=== PATIENT | female | born 1970 | race Caucasian/White ===

== ENCOUNTER 2017-05-14 13:23 | Emergency (ER) | payer OTHER ==
[2017-05-14] MEDS ORDERED: METHYLPREDNISOLONE 125 MG INJ ONE (14:13)
[2017-05-14] MEDS ORDERED: FAMOTIDINE 20 MG/2 ML VIAL IV ONE (14:13)
[2017-05-14] MEDS ORDERED: DIPHENHYDRAMINE 50 MG/ML VIAL ONE (14:13)
--- NOTE | 2017-05-14 14:51 | EDPHYS ---
Physician Documentation [facility] Name: Darion Chan Age: 46 yrs Sex: Female : 1970 Arrival Date: 05/14/2017 Time: 13:32 Bed 16 Private MD: ED Physician Hernan Gomez HPI: 05/14 15:00 This 46 yrs old Female presents to ER via EMS with complaints of Allergic pm1 Reaction. 15:00 The patient presents with itching, shortness of breath. Onset: The symptoms/episode pm1 began/occurred this morning. Associated signs and symptoms: Pertinent positives: shortness of breath, Pertinent negatives: hives, rash. Possible causes: Patient just started using an eye drop for a stye today and started having symptoms of shortness of breath and itching. At home the patient or guardian has treated the symptoms with nothing. Severity of symptoms: in the emergency department the symptoms are worse. The patient has not experienced similar symptoms in the past. The patient has been recently seen by a physician: with different complaint(s). 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 ROS: 15:00 Constitutional: Negative for fever, chills, and weight loss. pm1 15:00 ENT: Negative for injury, pain, and discharge, Neck: Negative for injury, pain, and swelling, Cardiovascular: Negative for chest pain, palpitations, and edema, Respiratory: Negative for cough, wheezing, and pleuritic chest pain. Positive for shortness of breath Abdomen/GI: Negative for abdominal pain, nausea, vomiting, diarrhea, and constipation, Back: Negative for injury and pain, MS/Extremity: Negative for injury and deformity. 15:00 Eyes: Positive for of the left upper eyelid, stye . 15:00 Skin: Positive for itching diffusely. Exam: 15:00 Constitutional: This is a well developed, well nourished patient who is awake, alert, pm1 and in no acute distress. Head/Face: Normocephalic, atraumatic. Eyes: Pupils equal round and reactive to light, extra-ocular motions intact. Lids and lashes normal. Conjunctiva and sclera are non-icteric and not injected. Cornea within normal limits. Periorbital areas with no swelling, redness, or edema. No stye present ENT: Nares patent. No nasal discharge, no septal abnormalities noted. Tympanic membranes are normal and external auditory canals are clear. Oropharynx with no redness, swelling, or masses, exudates, or evidence of obstruction, uvula midline. Mucous membranes moist. Neck: Trachea midline, no thyromegaly or masses palpated, and no cervical lymphadenopathy. Supple, full range of motion without nuchal rigidity, or vertebral point tenderness. No Meningismus. Chest/axilla: Normal chest wall appearance and motion. Nontender with no deformity. No lesions are appreciated. Cardiovascular: Regular rate and rhythm with a normal S1 and S2. No gallops, murmurs, or rubs. Normal PMI, no JVD. No pulse deficits. Respiratory: Lungs have equal breath sounds bilaterally, clear to auscultation and percussion. No rales, rhonchi or wheezes noted. No increased work of breathing, no retractions or nasal flaring. Abdomen/GI: Soft, non-tender, with normal bowel sounds. No distension or tympany. No guarding or rebound. No evidence of tenderness throughout. Back: No spinal tenderness. No costovertebral tenderness. Full range of motion. Skin: Warm, dry with normal turgor. Normal color with no rashes, no lesions, and no evidence of cellulitis. MS/ Extremity: Pulses equal, no cyanosis. Neurovascular intact. Full, normal range of motion. 15:00 Neuro: Orientation: is normal, Motor: moves all fours. Vital Signs: 13:37 BP 130 / 76; Pulse 85; Resp 16 S; Pulse Ox 97% on R/A; Weight 63.5 kg (R); Height 5 ft. jl7 0 in. (152.40 cm) (R); Pain 5/10; 14:34 BP 135 / 92; Pulse 80; Resp 16 S; Pulse Ox 100% on R/A; 7 13:37 Body Mass Index 27.34 (63.50 kg, 152.40 cm) 7 MDM: 13:46 Patient medically screened. pm1 14:35 Data reviewed: vital signs. Data interpreted: Pulse oximetry: on room air is 100 %. pm1 Interpretation: normal. Counseling: I had a detailed discussion with the patient and/or guardian regarding: the historical points, exam findings, and any diagnostic results supporting the discharge/admit diagnosis, the need for outpatient follow up, to return to the emergency department if symptoms worsen or persist or if there are any questions or concerns that arise at home. 05/14 13:50 Order name: IV Saline Lock; Complete Time: 14:03 pm1 Administered Medications: 13:58 Drug: Pepcid 20 mg Route: IVP; Site: left forearm; [facility] 14:30 Follow up: Response: No adverse reaction [facility] 14:00 Drug: SOLU-Medrol 125 mg Route: IVP; Site: left forearm; [facility] 14:30 Follow up: Response: No adverse reaction [facility] 14:02 Drug: Benadryl 12.5 mg Route: IVP; Site: left forearm; [facility] 14:30 Follow up: Response: No adverse reaction [facility] Disposition: 05/15 07:13 Co-signature as Attending Physician, Hernan Gomez MD. ma2 Disposition: 05/14/17 14:39 Discharged to Home. Impression: Unspecified adverse effect of drug or medicament - allergic reaction to dexamethasone/neomycin/polymyxin ophthalmic. - Condition is Stable. - Discharge Instructions: Drug Allergy. - Prescriptions for Benadryl 25 mg Oral Capsule - take 1 capsule by ORAL route every 6 hours As needed; 30 tablet. Pepcid 20 mg Oral Tablet - take 1 tablet by ORAL route every 12 hours for 10 days; 20 tablet. Prednisone 20 mg Oral Tablet - take 3 tablet by ORAL route once daily for 5 days; 15 tablet. - Medication Reconciliation Form, Thank You Letter form. - Follow up: Emergency Department; When: As needed; Reason: Worsening of condition. Follow up: Private Physician; When: 2 - 3 days; Reason: Recheck today's complaints, Continuance of care, Re-evaluation by your physician. - Problem is new. - Symptoms have improved. Signatures: Robert Pena NP NURSING HOME AIDE pm1 Satish Mueller RN RN jl7 Hernan Gomez MD MD ma2 Andrei White jtb Corrections: (The following items were deleted from the chart) 05/14 23:25 15:00 ENT: Negative for injury, pain, and discharge, Neck: Negative for injury, pain, pm1 and swelling, Cardiovascular: Negative for chest pain, palpitations, and edema, Respiratory: Negative for shortness of breath, cough, wheezing, and pleuritic chest pain, Abdomen/GI: Negative for abdominal pain, nausea, vomiting, diarrhea, and constipation, Back: Negative for injury and pain, MS/Extremity: Negative for injury and deformity, pm1
--- NOTE | 2017-05-14 14:51 | ER ---
Nurse's Notes [facility] Name: Darion Chan Age: 46 yrs Sex: Female : 1970 Arrival Date: 05/14/2017 Time: 13:32 Bed 16 Private MD: Diagnosis: Unspecified adverse effect of drug or medicament-allergic reaction to dexamethasone/neomycin/polymyxin ophthalmic Presentation: 05/14 13:32 Presenting complaint: EMS states: Pt c/o throat swelling and the left side of her face jl7 swelling about an hour after she took eye drops. Transition of care: patient was received from another setting of care (rehabilitation facility). Onset: The symptoms/episode began/occurred acutely, 1.5 hour(s) ago. Onset of symptoms was May 14, 2017. Care prior to arrival: None. 13:32 Method Of Arrival: EMS: [facility] jl 13:32 Acuity: LAKE 3 jl7 Triage Assessment: 13:35 General: Appears in no apparent distress. comfortable, Behavior is cooperative. Pain: jl7 Denies pain. EENT: Swelling noted to uvula at this time.. Neuro: Level of Consciousness is awake, alert, obeys commands. Cardiovascular: Patient's skin is warm and dry. Respiratory: Airway is patent Respiratory effort is even, unlabored, Respiratory pattern is regular, symmetrical. Derm: Skin is pink, warm \T\ dry. 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 Screenin:45 Abuse screen: Denies threats or abuse. Denies injuries from another. Nutritional jtb screening: No deficits noted. Tuberculosis screening: No symptoms or risk factors identified. Fall Risk None identified. Assessment: 13:45 General: Appears in no apparent distress. uncomfortable, Behavior is calm, cooperative, jtb appropriate for age. Pain: Complains of pain in chest Pain does not radiate. Pain currently is 5 out of 10 on a pain scale. at worst was 8 out of 10 on a pain scale. Quality of pain is described as pressure, Pain began 1 hour ago. Is intermittent. Neuro: Level of Consciousness is awake, alert, obeys commands, Oriented to person, place, time, situation. Cardiovascular: Heart tones S1 S2 present Patient's skin is warm and dry. Respiratory: Airway is patent Trachea midline Respiratory effort is even, unlabored, Respiratory pattern is regular, symmetrical, Breath sounds are clear bilaterally. GI: No signs and/or symptoms were reported involving the gastrointestinal system. : No signs and/or symptoms were reported regarding the genitourinary system. EENT: No signs and/or symptoms were reported regarding the EENT system. Derm: Skin is intact, Skin is pink, warm \T\ dry. Musculoskeletal: No signs and/or symptoms reported regarding the musculoskeletal system. 14:32 Reassessment: Patient and/or family updated on plan of care and expected duration. Pain jl7 level reassessed. Patient is alert, oriented x 3, equal unlabored respirations, skin warm/dry/pink. Patient states symptoms have improved. Vital Signs: 13:37 BP 130 / 76; Pulse 85; Resp 16 S; Pulse Ox 97% on R/A; Weight 63.5 kg (R); Height 5 ft. jl7 0 in. (152.40 cm) (R); Pain 5/10; 14:34 BP 135 / 92; Pulse 80; Resp 16 S; Pulse Ox 100% on R/A; jl7 13:37 Body Mass Index 27.34 (63.50 kg, 152.40 cm) jl7 ED Course: 13:32 Patient arrived in ED. jl7 13:33 Robert Pena NP is PHCP. pm1 13:33 Hernan Gomez MD is Attending Physician. pm1 13:34 Triage completed. jl7 13:37 Arm band placed on right wrist. jl7 13:45 Patient has correct armband on for positive identification. Bed in low position. Call j light in reach. Side rails up X2. Pulse ox on. NIBP on. 13:45 Inserted saline lock: 20 gauge in left antecubital area, using aseptic technique. [facility] 13:52 Mueller, Jahala, RN is Primary Nurse. jl7 15:10 No provider procedures requiring assistance completed. jtb 15:10 IV discontinued, intact, bleeding controlled. jtb Administered Medications: 13:58 Drug: Pepcid 20 mg Route: IVP; Site: left forearm; jl7 14:30 Follow up: Response: No adverse reaction jl7 14:00 Drug: SOLU-Medrol 125 mg Route: IVP; Site: left forearm; jl7 14:30 Follow up: Response: No adverse reaction jl7 14:02 Drug: Benadryl 12.5 mg Route: IVP; Site: left forearm; jl7 14:30 Follow up: Response: No adverse reaction [facility] Outcome: 14:39 Discharge ordered by MD. pm1 15:10 Discharged to Rehab Facility jtb 15:10 Condition: stable 15:10 Discharge instructions given to patient, Instructed on discharge instructions, follow up and referral plans. medication usage, Demonstrated understanding of instructions, follow-up care, medications, Prescriptions given X 3. 15:10 Attestation : I agree with everything documented by Andrei White, Student Nurse. jl7 15:11 Patient left the ED. jtb Signatures: Robert Pena, AARON POPCORN ATTENDANT pm1 Satish Mueller, RN RN jl7 Andrei White jalison Corrections: (The following items were deleted from the chart) 15:10 13:15 Inserted saline lock: 20 gauge in left antecubital area, using aseptic technique. jtb jtb
== END 2017-05-14 15:11 | disposition home or self-care (01) ==
LOC: ER 13:23
DX: T49.0X5A Adverse effect of local antifungal, anti-infective and anti-inflammatory drugs, initial encounter (principal); F17.210 Nicotine dependence, cigarettes, uncomplicated; J44.9 Chronic obstructive pulmonary disease, unspecified; Z88.8 Allergy status to other drugs, medicaments and biological substances
CPT/HCPCS: 96374; 96375; 99284; J2930

== ENCOUNTER 2017-05-31 20:51 | Emergency (ER) | payer OTHER ==
--- NOTE | 2017-06-01 00:34 | EDPHYS ---
Physician Documentation [facility] Name: Darion Chan Age: 46 yrs Sex: Female : 1970 Arrival Date: 05/31/2017 Time: 21:04 Bed 14 Private MD: ED Physician Daniel Reyes HPI: 06/01 00:00 This 46 yrs old Female presents to ER via Ambulatory with complaints of Arm pm1 Pain. 00:00 The patient or guardian complains of pain, that is acute. The complaints affect the pm1 left wrist. Context: The problem was sustained at home, resulted from a fall, the patient slipped, while walking. Onset: The symptoms/episode began/occurred 4 day(s) ago. Treatment prior to arrival includes: splinting the affected extremity. The patient has been recently seen by a physician: with similar presenting complaints, and apparently given a diagnosis of wrist sprain, X-rays were performed. Patient will slip and fall with injury to left wrist. Patient was seen at another ER and was given a splint to left wrist but reports pain is continuing despite treatment and ibuprofen. 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 - Social history:: Smoking status: Patient uses tobacco products, smokes one pack cigarettes per day. ROS: 06/01 00:00 Constitutional: Negative for fever, chills, and weight loss, Eyes: Negative for injury, pm1 pain, redness, and discharge, ENT: Negative for injury, pain, and discharge, Neck: Negative for injury, pain, and swelling, Cardiovascular: Negative for chest pain, palpitations, and edema, Respiratory: Negative for shortness of breath, cough, wheezing, and pleuritic chest pain, Abdomen/GI: Negative for abdominal pain, nausea, vomiting, diarrhea, and constipation, Back: Negative for injury and pain. Skin: Negative for injury, rash, and discoloration, Neuro: Negative for headache, weakness, numbness, tingling, and seizure. MS/extremity: Positive for pain, of the left wrist, Negative for decreased range of motion. Exam: 00:00 Constitutional: This is a well developed, well nourished patient who is awake, alert, pm1 and in no acute distress. Head/Face: Normocephalic, atraumatic. Eyes: Pupils equal round and reactive to light, extra-ocular motions intact. Lids and lashes normal. Conjunctiva and sclera are non-icteric and not injected. Cornea within normal limits. Periorbital areas with no swelling, redness, or edema. ENT: Nares patent. No nasal discharge, no septal abnormalities noted. Tympanic membranes are normal and external auditory canals are clear. Oropharynx with no redness, swelling, or masses, exudates, or evidence of obstruction, uvula midline. Mucous membranes moist. Neck: Trachea midline, no thyromegaly or masses palpated, and no cervical lymphadenopathy. Supple, full range of motion without nuchal rigidity, or vertebral point tenderness. No Meningismus. Chest/axilla: Normal chest wall appearance and motion. Nontender with no deformity. No lesions are appreciated. Cardiovascular: Regular rate and rhythm with a normal S1 and S2. No gallops, murmurs, or rubs. Normal PMI, no JVD. No pulse deficits. Respiratory: Lungs have equal breath sounds bilaterally, clear to auscultation and percussion. No rales, rhonchi or wheezes noted. No increased work of breathing, no retractions or nasal flaring. Abdomen/GI: Soft, non-tender, with normal bowel sounds. No distension or tympany. No guarding or rebound. No evidence of tenderness throughout. Back: No spinal tenderness. No costovertebral tenderness. Full range of motion. Skin: Warm, dry with normal turgor. Normal color with no rashes, no lesions, and no evidence of cellulitis. 00:00 Musculoskeletal/extremity: Extremities: grossly normal except: noted in the left wrist: pain, tenderness, ROM: intact in all extremities, Circulation is intact in all extremities. 00:00 Neuro: Orientation: is normal, Motor: is normal, moves all fours, Sensation: is normal, no obvious gross deficits. Vital Signs: 05/31 21:07 BP 115 / 81; Pulse 87; Resp 16; Temp 98.6; Pulse Ox 100% on R/A; Weight 63.5 kg; Height aj 5 ft. 0 in. (152.40 cm); Pain 10/10; 22:25 BP 143 / 90; Pulse 83; Resp 16; Pulse Ox 100% on R/A; Pain 10/10; ao 23:31 BP 128 / 79; Pulse 80; Resp 16; Pulse Ox 99% on R/A; mt 06/01 00:33 BP 123 / 71; Pulse 84; Resp 16; Pulse Ox 100% on R/A; mt 05/31 21:07 Body Mass Index 27.34 (63.50 kg, 152.40 cm) aj Procedures: 00:47 Splinting: Splint applied to left wrist using wrist splint, applied by Prior ER Visit. pm1 Examined by me, post splint application: neurovascular intact, 2+ distal pulses palpable, brisk capillary refill noted, Patient tolerated well, Readjusted and sized splint. Patient reports left wrist feeling better after readjustment. MDM: 05/31 22:56 Patient medically screened. pm1 06/01 00:32 Data reviewed: vital signs. Data interpreted: Pulse oximetry: on room air is 99 %. pm1 Interpretation: normal. Counseling: I had a detailed discussion with the patient and/or guardian regarding: the historical points, exam findings, and any diagnostic results supporting the discharge/admit diagnosis, radiology results, the need for outpatient follow up, for definitive care, a orthopedic surgeon, to return to the emergency department if symptoms worsen or persist or if there are any questions or concerns that arise at home. 05/31 23:01 Order name: Wrist Left (3 View) XRAY pm1 Administered Medications: No medications were administered Disposition: 01:30 Co-signature as Attending Physician, Daniel Reyes MD. pktracy Disposition: 06/01/17 00:33 Discharged to Home. Impression: Pain in left wrist, Unspecified sprain of left wrist. - Condition is Stable. - Discharge Instructions: Musculoskeletal Pain, Wrist Pain, Wrist Splint. - Medication Reconciliation Form, Thank You Letter form. - Follow up: Emergency Department; When: As needed; Reason: Worsening of condition. Follow up: Asim Parmar MD; When: 2 - 3 days; Reason: Recheck today's complaints, Continuance of care, Re-evaluation by your physician. - Problem is new. - Symptoms have improved. Signatures: Dispatcher [employer] Gisel Almazan, RN Daniel Nguyễn MD MD pkl Ortiz, Alex, RN RN ao Marinas, Patrick, PRINT LINE SUPERVISOR PRINT LINE SUPERVISOR pm1
--- NOTE | 2017-06-01 00:34 | ER ---
Nurse's Notes [facility] Name: Darion Chan Age: 46 yrs Sex: Female : 1970 Arrival Date: 05/31/2017 Time: 21:04 Bed 14 Private MD: Diagnosis: Pain in left wrist;Unspecified sprain of left wrist Presentation: 05/31 21:04 Presenting complaint: Patient states: Reports left wrist pain that started 1 week ago aj after fall. Patient seen in another ER and had Xray, DX with sprain. Arrived in splint. Transition of care: patient was not received from another setting of care. Onset of symptoms was May 25, 2017. Note Patient is currently in treatment for drug and alcohol abuse. Patient is unable to receive narcotic pain medication. Care prior to arrival: Splint in [facility] from [facility]. 21:04 Method Of Arrival: Ambulatory 21:04 Acuity: LAKE 5 aj Triage Assessment: 21:07 General: Appears in no apparent distress. comfortable, Behavior is calm, cooperative, aj appropriate for age. Pain: Complains of pain in dorsal aspect of left forearm, left wrist and palmar aspect of left forearm Pain currently is 10 out of 10 on a pain scale. Neuro: Level of Consciousness is awake, alert, obeys commands, Oriented to person, place, time, situation. Respiratory: Airway is patent Respiratory effort is even, unlabored, Respiratory pattern is regular, symmetrical. Derm: Skin is intact, is healthy with good turgor, Skin is pink, warm \T\ dry. normal. Musculoskeletal: Reports pain in dorsal aspect of left forearm, left wrist and palmar aspect of left forearm. 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 - Social history:: Smoking status: Patient uses tobacco products, smokes one pack cigarettes per day. Screenin:20 Abuse screen: Denies threats or abuse. Denies injuries from another. Nutritional ao screening: No deficits noted. Tuberculosis screening: No symptoms or risk factors identified. Fall Risk None identified. Assessment: 22:19 General: Appears in no apparent distress. comfortable, Behavior is calm, cooperative, ao appropriate for age. Pain: Complains of pain in left arm. Neuro: Level of Consciousness is awake, alert, obeys commands, Oriented to person, place, time, Moves all extremities. Speech is normal. Cardiovascular: Patient's skin is warm and dry. Respiratory: Airway is patent Respiratory effort is even, unlabored, Respiratory pattern is regular, symmetrical. GI: Abdomen is non-distended. : No signs and/or symptoms were reported regarding the genitourinary system. EENT: No signs and/or symptoms were reported regarding the EENT system. Derm: No signs and/or symptoms reported regarding the dermatologic system. Musculoskeletal: Reports pain in left arm. 23:36 Reassessment: Patient appears in no apparent distress at this time. No changes from ao previously documented assessment. Patient and/or family updated on plan of care and expected duration. Pain level reassessed. Patient is alert, oriented x 3, equal unlabored respirations, skin warm/dry/pink. Patient had an X-ray. Waiting on X-ray report at this moment. 06/01 00:40 Reassessment: Patient appears in no apparent distress at this time. Patient and/or ao family updated on plan of care and expected duration. Pain level reassessed. Patient is alert, oriented x 3, equal unlabored respirations, skin warm/dry/pink. 00:50 Reassessment: Called [facility] to inform patient is been discharge. They stated that ao they will come to pick her up. Vital Signs: 05/31 21:07 BP 115 / 81; Pulse 87; Resp 16; Temp 98.6; Pulse Ox 100% on R/A; Weight 63.5 kg; Height aj 5 ft. 0 in. (152.40 cm); Pain 10/10; 22:25 BP 143 / 90; Pulse 83; Resp 16; Pulse Ox 100% on R/A; Pain 10/10; ao 23:31 BP 128 / 79; Pulse 80; Resp 16; Pulse Ox 99% on R/A; mt 04/03 00:33 BP 123 / 71; Pulse 84; Resp 16; Pulse Ox 100% on R/A; mt 05/31 21:07 Body Mass Index 27.34 (63.50 kg, 152.40 cm) ED Course: 05/31 21:04 Patient arrived in ED. aj 21:06 Triage completed. aj 21:07 Arm band placed on right wrist. Patient placed in waiting room, Patient notified of wait time. 22:19 Gera Davila, RN is Primary Nurse. ao 22:21 Patient has correct armband on for positive identification. Pulse ox on. NIBP on. ao 22:35 Robert Pena NP is PHCP. pm1 22:35 Daniel Reyes MD is Attending Physician. pm1 23:29 X-ray completed. Portable x-ray completed in exam room. Patient tolerated procedure kw well. 23:29 Wrist Left (3 View) XRAY In Process Unspecified. EDDC 06/01 00:33 Asim Parmar MD is Referral Physician. pm1 00:51 No provider procedures requiring assistance completed. Patient did not have IV access ao during this emergency room visit. Administered Medications: No medications were administered Outcome: 00:33 Discharge ordered by . pm1 00:51 Discharged to Rehab Facility ao 00:51 Condition: stable 00:51 Discharge instructions given to patient, family, Instructed on discharge instructions, follow up and referral plans. Demonstrated understanding of instructions, follow-up care, medications. 00:52 Patient left the ED. ao Signatures: Dispatcher [employer] EDDC Gisel Brandt RN RN aj Whitley, Kimberlee Gera Davila, Robert Morrison RN, NP DISABILITY BENEFITS SPECIALIST pm1 Bernadette Alcala sc
--- NOTE | 2017-06-01 08:36 | RAD REPORT ---
EXAM DESCRIPTION: RAD - Wrist Left 3 View - 05/31/2017 11:30 pm CLINICAL HISTORY: Left wrist pain FINDINGS: No fracture or dislocation is seen. A 6 centimeter lucency within the scaphoid probably represents a cyst
== END 2017-06-01 00:52 | disposition home or self-care (01) ==
LOC: ER 20:51
DX: S63.502A Unspecified sprain of left wrist, initial encounter (principal); W01.0XXA Fall on same level from slipping, tripping and stumbling without subsequent striking against object, initial encounter; Y93.01 Activity, walking, marching and hiking; Y92.009 Unspecified place in unspecified non-institutional (private) residence as the place of occurrence of the external cause; Z88.8 Allergy status to other drugs, medicaments and biological substances; F17.210 Nicotine dependence, cigarettes, uncomplicated; J44.9 Chronic obstructive pulmonary disease, unspecified
CPT/HCPCS: 99283

== ENCOUNTER 2017-06-05 18:11 | Emergency (ER) | payer OTHER ==
[2017-06-05] MEDS ORDERED: KETOROLAC 30 MG/ML INJ ONE (18:59)
[2017-06-05 19:08] LABS: Urine Blood NEGATIVE (NEG); Urine Glucose NEGATIVE (NEG); Urine Protein NEGATIVE (NEG); Urine Specific Gravity <1.005 (1.005-1.030)
--- NOTE | 2017-06-05 19:23 | RAD REPORT ---
EXAM DESCRIPTION: CT - CTHCSPWOC - 06/05/2017 7:03 pm CLINICAL HISTORY: Trauma, head and neck injury. COMPARISON: None. TECHNIQUE: Axial 5 mm thick images of the head were obtained. Axial 2 mm thick images of the cervical spine were obtained with sagittal and coronal reconstruction images generated and reviewed. All CT scans are performed using dose optimization technique as appropriate and may include automated exposure control or mA/KV adjustment according to patient size. 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 The paranasal sinuses and mastoids are clear.The calvarium is intact. CT CERVICAL SPINE WITHOUT CONTRAST: No fracture or subluxation.No prevertebral soft tissues swelling is identified. IMPRESSION: No acute intracranial or cervical spine findings.
--- NOTE | 2017-06-05 19:36 | RAD REPORT ---
EXAM DESCRIPTION: Lumbar Spine 3 Views CLINICAL HISTORY: Trauma, radiculopathy COMPARISON: None. FINDINGS: Vertebral body heights appear maintained. No compression fracture noted. Mild to moderate L5-S1 disc space narrowing is seen. No spondylolysis or spondylolisthesis. IMPRESSION: Mild to moderate L5-S1 spondylosis.
--- NOTE | 2017-06-05 20:13 | ER ---
Nurse's Notes [facility] Name: Darion Chan Age: 46 yrs Sex: Female : 1970 Arrival Date: 06/05/2017 Time: 18:19 Bed 23 Private MD: Diagnosis: Other slipping, tripping and stumbling and falls;Superficial injury of head;Strain of muscle, fascia and tendon at neck level;Low back pain Presentation: 06/05 18:21 Presenting complaint: EMS states: patient is currently residing at the rehab center. kr2 She reports falling twice today. Complains of pain to neck and back. Has a history of bulging disc in back and old should injury. She has no jo, bruising or reddened areas. She has a history of IV heroin and crack use. Vital signs stable with blood pressure 124/84. Transition of care: patient was received from another setting of care (rehabilitation facility). Onset of symptoms was June 05, 2017. Care prior to arrival: Cervical collar in place. 18:21 Method Of Arrival: EMS kr2 18:21 Acuity: LAKE 3 kr2 Triage Assessment: 18:24 General: Appears in no apparent distress. comfortable, well groomed, well developed, kr2 well nourished, Behavior is calm, cooperative, appropriate for age. Pain: Complains of pain in neck and back Pain does not radiate. Pain currently is 10 out of 10 on a pain scale. Quality of pain is described as stabbing, Pain began suddenly, Is continuous, Alleviated by nothing. Aggravated by repositioning. 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 - Social history:: Smoking status: Patient uses tobacco products. Screenin:23 Abuse screen: Denies threats or abuse. Denies injuries from another. Nutritional kr2 screening: No deficits noted. Tuberculosis screening: No symptoms or risk factors identified. Fall Risk Fall in past 12 months (25 points). Assessment: 18:31 General: Appears in no apparent distress. comfortable, well groomed, well developed, kr2 well nourished, Behavior is calm, cooperative, appropriate for age. Pain: Complains of pain in neck and back Pain does not radiate. Pain currently is 10 out of 10 on a pain scale. Quality of pain is described as stabbing, Pain began suddenly, Is continuous. Neuro: Level of Consciousness is awake, alert, obeys commands, Oriented to person, place, time, situation, Appropriate for age. Cardiovascular: Capillary refill < 3 seconds in bilateral fingers Patient's skin is warm and dry. Respiratory: Airway is patent Respiratory effort is even, unlabored, Respiratory pattern is regular, symmetrical. GI: Abdomen is flat, non-distended. : No signs and/or symptoms were reported regarding the genitourinary system. Denies burning with urination. EENT: Nares are clear Oral mucosa is moist. Derm: Skin is intact, is healthy with good turgor, Skin is pink, warm \T\ dry. Musculoskeletal: Circulation, motion, and sensation intact. Injury Description: slip and fall with pain to neck and back. 19:27 Reassessment: Patient appears in no apparent distress at this time. Patient and/or kr2 family updated on plan of care and expected duration. Pain level reassessed. Patient is alert, oriented x 3, equal unlabored respirations, skin warm/dry/pink. Patient returned from radiology. master fire control technician attempting to get ordered bloodwork at this time. 19:48 Reassessment: Patient appears in no apparent distress at this time. Patient and/or kr2 family updated on plan of care and expected duration. Pain level reassessed. Patient is alert, oriented x 3, equal unlabored respirations, skin warm/dry/pink. Patient states feeling better. 20:04 Reassessment: Serum negative, Toradol administered as ordered. kr2 Vital Signs: 18:19 BP 110 / 75; Pulse 86; Resp 18; Temp 97.9(O); Pulse Ox 98% on R/A; Weight 66.68 kg; kr2 Height 5 ft. (152.40 cm); Pain 10/10; 19:48 BP 122 / 74; Pulse 82; Resp 16; Pulse Ox 99% on R/A; kr2 18:19 Body Mass Index 28.71 (66.68 kg, 152.40 cm) 2 ED Course: 18:19 Patient arrived in ED. kr2 18:23 Triage completed. kr2 18:24 Arm band placed on left wrist. kr2 18:27 Patient has correct armband on for positive identification. Bed in low position. Call kr2 light in reach. Side rails up X2. Pulse ox on. NIBP on. Door closed. Warm blanket given. Head of bed elevated. 18:30 Robert Pena NP is PHCP. pm1 18:30 Marcos Arora MD is Attending Physician. pm1 18:31 Yeimi Metzger, RN is Primary Nurse. kr2 19:03 CT completed. Patient moved to CT via stretcher. Patient moved to radiology. jg1 19:04 CT Head C Spine In Process Unspecified. EDMS 19:14 Lumbar Spine (3 Views) XRAY In Process Unspecified. EDMS 19:33 Initial lab(s) drawn, by me, sent to lab. dh3 20:20 No provider procedures requiring assistance completed. Patient did not have IV access kr2 during this emergency room visit. Administered Medications: 20:03 Drug: TORadol 60 mg Route: IM; Site: right gluteus; kr2 20:21 Follow up: Response: No adverse reaction; Pain is decreased kr2 Outcome: 20:12 Discharge ordered by MD. pm1 20:20 Discharged to Rehab Facility kr2 20:20 Condition: good 20:20 Discharge instructions given to patient, family, Instructed on discharge instructions, follow up and referral plans. medication usage, Demonstrated understanding of instructions, follow-up care, medications, Prescriptions given X 1. 20:21 Patient left the ED. kr2 Signatures: Dispatcher [employer] EDAL Leona Hare j Robert Pena NP AUDIOLOGY DIRECTOR pm1 Katie Rosa 3 Yeimi Metzger, RN RN kr2 Corrections: (The following items were deleted from the chart) 19:49 18:19 BP 110 / 75; Pulse 86bpm; Resp 18bpm; Pulse Ox 98% RA; 66.68 kg; Height 5 ft.; kr2 BMI: 28.7; Pain 10/10; kr2
--- NOTE | 2017-06-05 20:13 | EDPHYS ---
Physician Documentation [facility] Name: Darion Chan Age: 46 yrs Sex: Female : 1970 Arrival Date: 06/05/2017 Time: 18:19 Bed 23 Private MD: ED Physician Marcos Arora HPI: 06/05 20:00 This 46 yrs old Female presents to ER via EMS with complaints of Fall Injury. pm1 20:00 Details of fall: The patient fell from an upright position, while standing. Onset: The pm1 symptoms/episode began/occurred today. Associated injuries: The patient sustained injury to the head, neck injury, injury to the low back. Severity of symptoms: in the emergency department the symptoms are unchanged. The patient has not experienced similar symptoms in the past. Patient was showering and slipped twice landing on her lower back and head. Patient presenting with headache, neck pain, and lower back pain. No LOC, nausea, or vomiting. Patient from drug rehabilitation facility - not allowed to take any narcotics. 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 - Social history:: Smoking status: Patient uses tobacco products. ROS: 20:00 Constitutional: Negative for fever, chills, and weight loss, Eyes: Negative for injury, pm1 pain, redness, and discharge, ENT: Negative for injury, pain, and discharge, Cardiovascular: Negative for chest pain, palpitations, and edema, Respiratory: Negative for shortness of breath, cough, wheezing, and pleuritic chest pain, Abdomen/GI: Negative for abdominal pain, nausea, vomiting, diarrhea, and constipation. 20:00 : Negative for injury, bleeding, discharge, and swelling, MS/Extremity: Negative for injury and deformity, Skin: Negative for injury, rash, and discoloration. 20:00 Neck: Positive for bony tenderness. 20:00 Back: Positive for of the lumbar area, Pain. 20:00 Neuro: Positive for headache, Negative for dizziness, loss of consciousness, numbness, seizure activity, syncope, near syncope, tingling, weakness. Exam: 20:00 Constitutional: This is a well developed, well nourished patient who is awake, alert, pm1 and in no acute distress. Head/Face: Normocephalic, atraumatic. Eyes: Pupils equal round and reactive to light, extra-ocular motions intact. Lids and lashes normal. Conjunctiva and sclera are non-icteric and not injected. Cornea within normal limits. Periorbital areas with no swelling, redness, or edema. ENT: Nares patent. No nasal discharge, no septal abnormalities noted. Tympanic membranes are normal and external auditory canals are clear. Oropharynx with no redness, swelling, or masses, exudates, or evidence of obstruction, uvula midline. Mucous membranes moist. 20:00 Chest/axilla: Normal chest wall appearance and motion. Nontender with no deformity. No lesions are appreciated. Cardiovascular: Regular rate and rhythm with a normal S1 and S2. No gallops, murmurs, or rubs. Normal PMI, no JVD. No pulse deficits. Respiratory: Lungs have equal breath sounds bilaterally, clear to auscultation and percussion. No rales, rhonchi or wheezes noted. No increased work of breathing, no retractions or nasal flaring. Abdomen/GI: Soft, non-tender, with normal bowel sounds. No distension or tympany. No guarding or rebound. No evidence of tenderness throughout. 20:00 Skin: Warm, dry with normal turgor. Normal color with no rashes, no lesions, and no evidence of cellulitis. MS/ Extremity: Pulses equal, no cyanosis. Neurovascular intact. Full, normal range of motion. 20:00 Neck: External neck: is normal, C-spine: C-collar placed in ED, vertebral tenderness, that is mild. 20:00 Back: normal spinal alignment noted, vertebral tenderness, is not appreciated, muscle spasm, is appreciated in the left low back and right low back. 20:00 Neuro: Orientation: is normal, Mentation: is normal, Motor: moves all fours, Sensation: is normal, no obvious gross deficits. Vital Signs: 18:19 BP 110 / 75; Pulse 86; Resp 18; Temp 97.9(O); Pulse Ox 98% on R/A; Weight 66.68 kg; kr2 Height 5 ft. (152.40 cm); Pain 10/10; 19:48 BP 122 / 74; Pulse 82; Resp 16; Pulse Ox 99% on R/A; kr2 18:19 Body Mass Index 28.71 (66.68 kg, 152.40 cm) kr2 MDM: 18:33 Patient medically screened. pm1 20:07 Data reviewed: vital signs. Data interpreted: Pulse oximetry: on room air is 99 %. pm1 Interpretation: normal. Counseling: I had a detailed discussion with the patient and/or guardian regarding: the historical points, exam findings, and any diagnostic results supporting the discharge/admit diagnosis, radiology results, the need for outpatient follow up, to return to the emergency department if symptoms worsen or persist or if there are any questions or concerns that arise at home. 06/05 18:46 Order name: Urine Dipstick--Ancillary (enter results); Complete Time: 20:00 bd 06/05 18:54 Order name: Test, Serum; Complete Time: 20:17 kr2 06/05 18:35 Order name: CT Head C Spine; Complete Time: 20:00 pm1 06/05 18:35 Order name: Lumbar Spine (3 Views) XRAY; Complete Time: 20:00 pm1 06/05 18:35 Order name: Urine Dipstick-Ancillary (obtain specimen); Complete Time: 18:47 pm1 06/05 18:35 Order name: Urine Test (obtain specimen); Complete Time: 18:47 pm1 06/05 18:35 Order name: C-Collar; Complete Time: 18:38 pm1 Administered Medications: 20:03 Drug: TORadol 60 mg Route: IM; Site: right gluteus; kr2 20:21 Follow up: Response: No adverse reaction; Pain is decreased kr2 Disposition: 06/06 07:06 Co-signature as Attending Physician, Marcos Arora MD. rn Disposition: 06/05/17 20:12 Discharged to Home. Impression: Other slipping, tripping and stumbling and falls, Superficial injury of head, Strain of muscle, fascia and tendon at neck level, Low back pain. - Condition is Stable. - Discharge Instructions: Back Pain, Adult, Contusion, Head Injury, Adult, Fall Prevention and Home Safety, Muscle Strain, Musculoskeletal Pain. - Prescriptions for Naprosyn 500 mg Oral Tablet - take 1 tablet by ORAL route 2 times per day take with food; 30 tablet. - Medication Reconciliation Form, Thank You Letter form. - Follow up: Emergency Department; When: As needed; Reason: Worsening of condition. Follow up: Private Physician; When: 2 - 3 days; Reason: Recheck today's complaints, Continuance of care, Re-evaluation by your physician. - Problem is new. - Symptoms have improved. Signatures: Dispatcher [employer] EDMarcos Lloyd MD MD rn Marinas, Patrick, NP DIRECTOR OF HOME HEALTH SERVICES pm1 Yeimi Metzger RN RN kr2
== END 2017-06-05 20:21 | disposition home or self-care (01) ==
LOC: ER 18:11
DX: S16.1XXA Strain of muscle, fascia and tendon at neck level, initial encounter (principal); S00.90XA Unspecified superficial injury of unspecified part of head, initial encounter; W01.0XXA Fall on same level from slipping, tripping and stumbling without subsequent striking against object, initial encounter; Y93.E1 Activity, personal bathing and showering; Y92.002 Bathroom of unspecified non-institutional (private) residence as the place of occurrence of the external cause; Z88.8 Allergy status to other drugs, medicaments and biological substances; Z72.0 Tobacco use
CPT/HCPCS: 36415; 70450; 72100; 72125; 81003; 84703; 96372; 99284

== ENCOUNTER 2017-06-12 08:17 | Emergency (ER) | payer OTHER ==
[2017-06-12] MEDS ORDERED: MAGNE/ALUM HYDROXD 30 ML UCUP ONE (08:55)
[2017-06-12] MEDS ORDERED: LIDOCAINE VISCOUS 2% SOLN 15 ML UDC ONE (08:55)
[2017-06-12 08:58] LABS: Bicarbonate 32 mEq/L (21-31); Glucose Level 87 mg/dL (65-120); Potassium 3.8 mEq/L (3.6-5.0); Sodium Level 140 mEq/L (135-145)
[2017-06-12 09:03] LABS: Absolute Lymphocytes (CBC) 1.8 K/uL (0.7-4.9); Absolute Monocytes 0.7 K/uL (0.1-1.3); Absolute Neutrophil 6.7 K/uL (1.8-8.0); Basophils % 0.4 % (0-1.3); Eosinophils % 1.1 % (0-4.4); Hematocrit 39.7 % (36.0-45.0); Lymphocytes % 19.1 % (15.3-44.8); MCH 26.7 pg (27.0-35.0); MCV 82.3 fL (80-100); MPV 10.2 fL (7.6-11.3); Monocytes % 7.6 % (3.3-12.3); RBC Red Blood Cell Count 4.83 M/uL (3.86-4.86)
[2017-06-12 09:04] LABS: ALT/SGPT 11 IU/L (10-60); AST/SGOT 20 IU/L (10-42); Alkaline Phosphatase 78 IU/L (42-121); BUN Blood Urea Nitrogen 12 mg/dL (6-20); Bilirubin Direct < 0.1 mg/dL (0-0.2); Bilirubin Total 0.3 mg/dL (0.3-1.2); Magnesium 1.9 mg/dL (1.8-2.5); Protein, Total 7.2 g/dL (6.0-8.3)
[2017-06-12] MEDS ORDERED: KETOROLAC 30 MG/ML INJ ONE (10:16)
[2017-06-12] MEDS ORDERED: FAMOTIDINE 20 MG/2 ML VIAL IV ONE (10:51)
[2017-06-12] MEDS ORDERED: HYDROCODONE/APAP 10/325 TAB ONE (10:51)
--- NOTE | 2017-06-12 12:11 | RAD REPORT ---
EXAM DESCRIPTION: RAD - Chest Single View - 06/12/2017 8:55 am CLINICAL HISTORY: Chest pain COMPARISON: None. TECHNIQUE: AP portable chest image was obtained 0844 hours . FINDINGS: No focal mass or consolidation. Interstitial markings are prominent with the baseline for the patient unknown. Current examination could be baseline for the patient or indicate a mild interst itial edema or infiltrate. No vascular engorgement. Trachea is midline with normal heart size. No adriana surable pleural effusion and no pneumothorax. No gross bony abnormality seen. No acute aortic finding s suspected. IMPRESSION: No focal mass or consolidation. Interstitial markings are prominent with the baseline for the patient unknown. A minimal interstitial edema or infiltrate cannot be excluded.
--- NOTE | 2017-06-12 12:21 | ER ---
Nurse's Notes [facility] Name: Darion Chan Age: 46 yrs Sex: Female : 1970 Arrival Date: 06/12/2017 Time: 08:20 Bed 5 Private MD: Diagnosis: Chest pain, unspecified;Other chest pain Presentation: 06/12 09:11 Presenting complaint: EMS states: EMS states patient c/o of sternal chest pain. Patient ae1 thinks it is her "acid reflux", but her medication did not work this time and she vomited x1. Transition of care: patient was not received from another setting of care. Transition of care: [facility]. Onset of symptoms is unknown. Care prior to arrival: Medication(s) given: ASA, 325 mg. 09:11 Acuity: LAKE 3 ae1 09:11 Method Of Arrival: EMS: [facility] ae1 Triage Assessment: 09:05 General: Appears in no apparent distress. uncomfortable, Behavior is calm, cooperative. ae1 Pain: Complains of pain in xyphoid area and mid-sternal area Quality of pain is described as burning. EENT: No signs and/or symptoms were reported regarding the EENT system. Neuro: Level of Consciousness is awake, alert, obeys commands, Oriented to person, place, time, situation. Cardiovascular: Patient's skin is warm and dry. Respiratory: Airway is patent Respiratory effort is even, unlabored, Respiratory pattern is regular, symmetrical, Breath sounds are clear bilaterally. Respiratory: Reports shortness of breath on exertion. GI: No signs and/or symptoms were reported involving the gastrointestinal system. Patient currently denies nausea. : No signs and/or symptoms were reported regarding the genitourinary system. Derm: Skin is pink, warm \\T\\ dry. Musculoskeletal: No signs and/or symptoms reported regarding the musculoskeletal system. Historical: - Allergies: 10:49 GABAPENTIN; jl7 10:49 Lyrica; jl7 - Home Meds: 11:25 Albuterol Inhl every 4 hours [Active]; ipratropium bromide inhalation inhalation ae1 [Active]; Naproxen Oral [Active]; Abilify 2 mg oral tab [Active]; fluoxetine 40 mg Oral cap 1 cap once daily [Active]; estradiol 1 mg Oral tab 1 tab once daily [Active]; amoxicillin 500 mg Oral cap 1 cap every 8 hours [Active]; doxycycline hyclate 50 mg Oral TbEC [Active]; trazodone 50 mg Oral tab 1 tab for at bedtime [Active]; - PMHx: 10:49 COPD; ectopic ; PTSD; jl7 - PSHx: 10:49 Tubal ligation; jl7 - Immunization history:: Adult Immunizations unknown. - Social history:: Smoking status: Patient uses tobacco products. Screenin:01 Abuse screen: Denies threats or abuse. Denies injuries from another. Nutritional jl7 screening: No deficits noted. Tuberculosis screening: No symptoms or risk factors identified. Fall Risk IV access (20 points). Assessment: 09:27 Reassessment: Patient appears in no apparent distress at this time. Patient states ae1 feeling better. Patient states symptoms have improved. 09:53 Reassessment: Patient appears in no apparent distress at this time. Patient and/or ae1 family updated on plan of care and expected duration. Pain level reassessed. Patient is resting with eyes closed, appears to be sleeping, respirations even and unlabored, patient easily awakened to verbal stimuli. Patient states feeling better. Patient states symptoms have improved. 10:15 Reassessment: pt c/o of sharp pain in the chest, rated 8/10. Provider notified, See [facility] jl7 for orders. 10:45 Reassessment: Dr. Viveros at bedside. Pt reports pain is unchanged and she's in rehab jl7 for "crack and alcohol". Pt states "I'm about to ask for something stronger though because it hurts." See [facility] for orders. 11:25 Pain: Pain does not radiate. Pain began gradually, 1 day ago. ae1 12:15 Reassessment: Patient denies pain at this time. Patient states feeling better. Patient jl7 states symptoms have improved. Vital Signs: 08:22 BP 118 / 76; Pulse 85; Resp 17 S; Pulse Ox 97% on R/A; ae1 09:27 BP 113 / 76; Pulse 85; Resp 15; Pulse Ox 98% on R/A; ae1 09:49 Temp 98.(O); ae1 10:30 BP 105 / 67; Pulse 90; Resp 16 S; Pulse Ox 100% on R/A; jl7 11:02 BP 116 / 84; Pulse 95; Resp 16 S; Pulse Ox 100% on R/A; jl7 12:15 BP 111 / 80; Pulse 90; Resp 16 S; Pulse Ox 100% on R/A; jl7 ED Course: 08:20 Patient arrived in ED. ae1 08:20 Fortino Viveros MD is Attending Physician. kdr 08:35 Inserted saline lock: 22 gauge in right antecubital area, using aseptic technique. bm6 Blood collected. 08:53 XRAY Chest (1 view) In Process Unspecified. EDMS 09:01 Satish Mueller, RN is Primary Nurse. jl7 09:14 Triage completed. ae1 09:14 Patient maintains SpO2 saturation greater than 95% on room air. ae1 09:14 Arm band placed on right wrist. EKG completed in triage. Results shown to MD. ae1 09:15 Placed in gown. Bed in low position. Call light in reach. Side rails up X 1. Cardiac ae1 monitor on. Pulse ox on. NIBP on. Warm blanket given. 10:33 Satish Mueller, RN is Primary Nurse. jl7 12:39 No provider procedures requiring assistance completed. IV discontinued, intact, jl7 bleeding controlled, No redness/swelling at site. Pressure dressing applied. 12:40 Troponin (emerg Dept Use Only): Repeat two hours from initial draw Sent. jl7 Administered Medications: 09:02 Drug: GI Cocktail without - (Maalox Suspension 30 ml, Lidocaine Liquid 2 % 15 jl7 ml) Route: PO; 09:28 Follow up: Response: Pain is decreased ae1 10:18 Drug: TORadol 30 mg Route: IVP; Site: right antecubital; jl7 10:48 Follow up: Response: Pain is unchanged, physician notified jl7 10:51 Drug: [place] 10 mg-325 mg 1 tabs Route: PO; jl7 11:45 Follow up: Response: No adverse reaction; Pain is decreased jl7 10:52 Drug: Pepcid 20 mg Route: IVP; Site: right antecubital; jl7 11:04 Follow up: Response: No adverse reaction; Pain is decreased jl7 Outcome: 12:20 Discharge ordered by . kdr 12:39 Discharged to Rehab Facility jl7 12:39 Condition: stable 12:39 Discharge instructions given to patient, Instructed on discharge instructions, follow up and referral plans. medication usage, Demonstrated understanding of instructions, follow-up care, medications. 12:41 Patient left the ED. jl7 Signatures: Dispatcher [employer] EDMS Fortino Viveros MD MD kdr Elliott, Andrea RN RN [id number] Carlos A Jackson [id number] Satish Mueller RN RN jl7
--- NOTE | 2017-06-12 12:21 | EDPHYS ---
Physician Documentation [facility] Name: Darion Chan Age: 46 yrs Sex: Female : 1970 Arrival Date: 06/12/2017 Time: 08:20 Bed 5 Private MD: ED Physician Fortino Viveros HPI: 06/12 08:35 This 46 yrs old Female presents to ER via Unassigned with complaints of Chest kdr Pain. 08:35 The patient or guardian reports chest pain that is located primarily in the substernal kdr area. Onset: acutely, this morning, at 05:00. The pain radiates to the left arm. Associated signs and symptoms: Pertinent positives: nausea, vomiting, Pertinent negatives: abdominal pain, cough, diaphoresis, dizziness, headache, lower extremity pain, lower extremity swelling, lightheadedness, near syncope, palpitations, recent travel, shortness of breath. The chest pain is described as burning, dull, a heaviness, a pressure. Duration: The patient or guardian reports a single episode, that is still ongoing, and unchanged. Modifying factors: The symptoms are alleviated by Vomiting. the symptoms are aggravated by nothing. Severity of pain: At its worst the pain was moderate just prior to arrival, in the emergency department the pain has improved mildly. The patient has experienced similar episodes in the past, a few times, Usually has not had the left arm numbness. The patient has not recently seen a physician. The patient is currently in rehab. Historical: - Allergies: 10:49 GABAPENTIN; jl7 10:49 Lyrica; jl7 - Home Meds: 11:25 Albuterol Inhl every 4 hours [Active]; ipratropium bromide inhalation inhalation ae1 [Active]; Naproxen Oral [Active]; Abilify 2 mg oral tab [Active]; fluoxetine 40 mg Oral cap 1 cap once daily [Active]; estradiol 1 mg Oral tab 1 tab once daily [Active]; amoxicillin 500 mg Oral cap 1 cap every 8 hours [Active]; doxycycline hyclate 50 mg Oral TbEC [Active]; trazodone 50 mg Oral tab 1 tab for at bedtime [Active]; - PMHx: 10:49 COPD; ectopic ; PTSD; jl7 - PSHx: 10:49 Tubal ligation; jl7 - Immunization history:: Adult Immunizations unknown. - Social history:: Smoking status: Patient uses tobacco products. ROS: 08:35 Constitutional: Negative for fever, chills, and weight loss, Eyes: Negative for injury, kdr pain, redness, and discharge, ENT: Negative for injury, pain, and discharge, Neck: Negative for injury, pain, and swelling, Respiratory: Negative for shortness of breath, cough, wheezing, and pleuritic chest pain, Back: Negative for injury and pain, : Negative for injury, bleeding, discharge, and swelling, MS/Extremity: Negative for injury and deformity, Skin: Negative for injury, rash, and discoloration, Neuro: Negative for headache, weakness, numbness, tingling, and seizure activity. Psych: Negative for depression, anxiety, suicide ideation, homicidal ideation, and hallucinations, Allergy/Immunology: Negative for hives, rash, and allergies, Endocrine: Negative for neck swelling, polydipsia, polyuria, polyphagia, and marked weight changes, Hematologic/Lymphatic: Negative for swollen nodes, abnormal bleeding, and unusual bruising. 08:35 Cardiovascular: Positive for chest pain, Negative for edema, orthopnea, palpitations, paroxysmal nocturnal dyspnea. 08:35 Abdomen/GI: Positive for abdominal pain. Exam: 08:57 Constitutional: This is a well developed, well nourished patient who is awake, alert, kdr and in no acute distress. Head/Face: Normocephalic, atraumatic. Eyes: Pupils equal round and reactive to light, extra-ocular motions intact. Lids and lashes normal. Conjunctiva and sclera are non-icteric and not injected. Cornea within normal limits. Periorbital areas with no swelling, redness, or edema. Neck: Trachea midline, no thyromegaly or masses palpated, and no cervical lymphadenopathy. Supple, full range of motion without nuchal rigidity, or vertebral point tenderness. No Meningismus. Chest/axilla: Normal chest wall appearance and motion. Nontender with no deformity. No lesions are appreciated. Cardiovascular: Regular rate and rhythm with a normal S1 and S2. No gallops, murmurs, or rubs. Normal PMI, no JVD. No pulse deficits. Respiratory: Lungs have equal breath sounds bilaterally, clear to auscultation and percussion. No rales, rhonchi or wheezes noted. No increased work of breathing, no retractions or nasal flaring. Abdomen/GI: Soft, non-tender, with normal bowel sounds. No distension or tympany. No guarding or rebound. No evidence of tenderness throughout. Back: No spinal tenderness. No costovertebral tenderness. Full range of motion. Skin: Warm, dry with normal turgor. Normal color with no rashes, no lesions, and no evidence of cellulitis. MS/ Extremity: Pulses equal, no cyanosis. Neurovascular intact. Full, normal range of motion. Neuro: Awake and alert, GCS 15, oriented to person, place, time, and situation. Cranial nerves II-XII grossly intact. Motor strength 5/5 in all extremities. Sensory grossly intact. Cerebellar exam normal. Normal gait. Psych: Awake, alert, with orientation to person, place and time. Behavior, mood, and affect are within normal limits. Vital Signs: 08:22 BP 118 / 76; Pulse 85; Resp 17 S; Pulse Ox 97% on R/A; ae1 09:27 BP 113 / 76; Pulse 85; Resp 15; Pulse Ox 98% on R/A; ae1 09:49 Temp 98.(O); ae1 10:30 BP 105 / 67; Pulse 90; Resp 16 S; Pulse Ox 100% on R/A; jl7 11:02 BP 116 / 84; Pulse 95; Resp 16 S; Pulse Ox 100% on R/A; jl7 12:15 BP 111 / 80; Pulse 90; Resp 16 S; Pulse Ox 100% on R/A; jl7 MDM: 12:14 Data reviewed: vital signs, nurses notes, lab test result(s), EKG, radiologic studies. kdr Counseling: I had a detailed discussion with the patient and/or guardian regarding: the historical points, exam findings, and any diagnostic results supporting the discharge/admit diagnosis, lab results, radiology results, the need for outpatient follow up. ED course: The patient had transient relief with the GI cocktail but the pain returned. The [place] helped with her pain. She was otherwise comfortable and stable in the ED. 12:20 Patient medically screened. kdr 06/12 08:33 Order name: Basic Metabolic Panel; Complete Time: 09:30 kdr 06/12 08:33 Order name: BNP; Complete Time: :30 kdr 06/12 08:33 Order name: CBC with Diff; Complete Time: :30 kdr 06/12 08:33 Order name: LFT's; Complete Time: 09:30 kdr 06/12 08:33 Order name: Magnesium; Complete Time: 09:30 kdr 06/12 08:33 Order name: PT-INR; Complete Time: 09:30 kdr 06/12 08:33 Order name: Ptt, Activated; Complete Time: 09:30 kdr 06/12 08:33 Order name: Troponin (emerg Dept Use Only); Complete Time: 09:30 kdr 06/12 08:33 Order name: XRAY Chest (1 view) kdr 06/12 09:32 Order name: Troponin (emerg Dept Use Only): Repeat two hours from initial draw kdr 06/12 09:32 Order name: Troponin (Emerg Dept Use Only); Complete Time: 10:45 EDMS 06/12 08:33 Order name: EKG; Complete Time: 08:34 kdr 06/12 08:33 Order name: Cardiac monitoring; Complete Time: 08:43 kdr 06/12 08:33 Order name: EKG - Nurse/Tech; Complete Time: 08:43 kdr 06/12 08:33 Order name: IV Saline Lock; Complete Time: 08:43 kdr 06/12 08:33 Order name: Labs collected and sent; Complete Time: 08:44 kdr 06/12 08:33 Order name: O2 Per Protocol; Complete Time: 08:44 kdr 06/12 08:33 Order name: O2 Sat Monitoring; Complete Time: 08:44 kdr 06/12 09:32 Order name: EKG - Nurse/Tech: Repeat two hours from initial strip; Complete Time: 10:48 kdr Administered Medications: 09:02 Drug: GI Cocktail without - (Maalox Suspension 30 ml, Lidocaine Liquid 2 % 15 jl7 ml) Route: PO; 09:28 Follow up: Response: Pain is decreased ae1 10:18 Drug: TORadol 30 mg Route: IVP; Site: right antecubital; jl7 10:48 Follow up: Response: Pain is unchanged, physician notified jl7 10:51 Drug: [place] 10 mg-325 mg 1 tabs Route: PO; jl7 11:45 Follow up: Response: No adverse reaction; Pain is decreased jl7 10:52 Drug: Pepcid 20 mg Route: IVP; Site: right antecubital; jl7 11:04 Follow up: Response: No adverse reaction; Pain is decreased jl7 Disposition: 06/12/17 12:20 Discharged to Home. Impression: Chest pain, unspecified, Other chest pain. - Condition is Stable. - Discharge Instructions: Nonspecific Chest Pain, [id number]. - Prescriptions for Ibuprofen 800 mg Oral Tablet - take 1 tablet by ORAL route every 8 hours As needed take with food; 12 tablet. Pepcid 20 mg Oral Tablet - take 1 tablet by ORAL route every 12 hours for 5 days; 10 tablet. Tramadol 50 mg Oral Tablet - take 1 tablet by ORAL route every 8 hours as needed; 12 tablet. - Medication Reconciliation Form, Thank You Letter, Antibiotic Education, Prescription Opioid Use form. - Follow up: Private Physician; When: 2 - 3 days; Reason: If symptoms return, Further diagnostic work-up, Recheck today's complaints, Continuance of care, Re-evaluation by your physician. - Problem is new. - Symptoms have improved. Signatures: Dispatcher [employer] EDMS Fortino Viveros MD MD kdr Elliott, Andrea, RN RN ae1 Satish Mueller RN RN jl7
--- NOTE | 2017-06-13 22:37 | EKG ---
Test Date: 2017-06-12 Test Time: 10:45:05 Behavior Therapist: AMAIRANI MEASUREMENT RESULTS: Intervals: Rate: 82 GA: 128 QRSD: 82 QT: 370 QTc: 432 [place]: P: 37 GA: 128 QRS: 74 T: 79 INTERPRETIVE STATEMENTS: Normal sinus rhythm Normal ECG Compared to ECG 06/12/2017 08:30:34 No significant changes Electronically Signed On 06-13-17 22:36:34 CDT by Latrell Joseph
--- NOTE | 2017-06-13 22:38 | EKG ---
Test Date: 2017-06-12 Test Time: 08:30:34 Manager Licensing: NOEL MEASUREMENT RESULTS: Intervals: Rate: 81 [place]: 116 QRSD: 80 QT: 372 QTc: 432 [place]: P: 46 [place]: 116 QRS: 71 T: 80 INTERPRETIVE STATEMENTS: Normal sinus rhythm Normal ECG No previous ECG available for comparison Electronically Signed On 06-13-17 22:37:29 CDT by Latrell Joseph
== END 2017-06-12 12:41 | disposition home or self-care (01) ==
LOC: ER 08:17
DX: R07.89 Other chest pain (principal); J44.9 Chronic obstructive pulmonary disease, unspecified; F43.10 Post-traumatic stress disorder, unspecified; Z72.0 Tobacco use; Z88.8 Allergy status to other drugs, medicaments and biological substances
CPT/HCPCS: 36415; 71045; 80048; 80076; 83735; 83880; 84484; 85025; 85610; 85730; 93005; 96374; 96375; 99285